=== PATIENT | female | born 1965 | race African-American/Black ===

== ENCOUNTER → 2017-07-04 | Outpatient (CLI) | payer BC ==
[2016-01-24 08:56] VITALS: BP 134/79
--- NOTE | 2017-07-05 07:44 | RAD ---
Chest, 2 views, 07/04/2017: History: Cough Comparison is made to a study from 06/10/2014. The heart size and pulmonary vascularity are normal. No pulmonary infiltrates are seen. There is no evidence of pleural fluid. IMPRESSION: No acute cardiopulmonary abnormality is detected.
== END | disposition home or self-care (01) ==
LOC: RAD 16:40
PROVIDERS: ATTEND Internal Medicine
DX: R05 Cough (principal); F17.200 Nicotine dependence, unspecified, uncomplicated
CPT/HCPCS: 71020

== ENCOUNTER 2018-01-06 19:00 | Emergency (ER) | payer BC | END 2018-01-06 19:47 | disposition left against medical advice (07) | LOC: ER 19:00 | DX: R55 Syncope and collapse (principal); Z91.010 Allergy to peanuts; Z91.018 Allergy to other foods | CPT/HCPCS: 99283 ==

== ENCOUNTER → 2018-01-27 | Outpatient (CLI) | payer BC | END | disposition home or self-care (01) | LOC: KCIC MAMMO 12:47 | DX: Z12.31 Encounter for screening mammogram for malignant neoplasm of breast (principal) | CPT/HCPCS: 77067 ==

== ENCOUNTER → 2018-02-15 | Outpatient (CLI) | payer BC ==
[~2018-02-15] MED LIST: CONTRAST GIVEN. MC
[2018-02-15] MEDS: IOHEXOL 300 MG/ML 100ML VIAL. IV (08:00)
[2018-02-15] MEDS: IOHEXOL 240 MG/ML 50ML VIAL. PO (08:00)
== END | disposition home or self-care (01) ==
LOC: CT 07:45
DX: R10.2 Pelvic and perineal pain (principal)
CPT/HCPCS: 74177; Q9966

== ENCOUNTER → 2019-01-16 | Outpatient (CLI) | payer BC ==
[2018-01-06 19:00] VITALS: BP 143/76
--- NOTE | 2019-01-16 14:42 | KCIC ---
BILATERAL DIAGNOSTIC MAMMOGRAPHY History: Patient notes left breast enlargement with development of a dark spot at the upper outer left areola with pruritus x2 months. Comparison: Bilateral mammogram January 27, 2018. Technique: Bilateral digital mammogram views were obtained. Findings: Breast Tissue Density B : There are scattered areas of fibroglandular density. There are no dominant masses, suspicious microcalcifications or architectural distortion. IMPRESSION: 1. No mammographic evidence of malignancy. Recommend routine follow-up. 2. For patient's complaint of a dark spot at the areola, recommend correlation with physical exam. BI-RADS category 1: Negative. The images were reviewed with computer-aided detection. Patient information is entered into the reminder system with a target due date for the next screening mammogram. Mammography is the most sensitive method for finding small breast cancers, but it does not detect them all and is not a substitute for careful clinical examination. A negative mammogram does not negate a clinically suspicious finding and should not result in delay in biopsying a clinically suspicious abnormality. "Our facility is accredited by the [employer] Mammography [employer]." Electronically signed by: Saúl Lorenzo MD (01/16/2019 2:39 PM) [id number]
== END | disposition home or self-care (01) ==
LOC: KCIC MAMMO 13:34
PROVIDERS: ATTEND Internal Medicine
DX: N62 Hypertrophy of breast (principal); L29.9 Pruritus, unspecified; R23.9 Unspecified skin changes
CPT/HCPCS: 77066

== ENCOUNTER → 2021-07-10 | Outpatient (CLI) | payer BC ==
[2018-01-06 19:00] VITALS: BP 143/76
--- NOTE | 2021-07-10 15:49 | KCIC ---
Bilateral digital screening mammograms: Reason for examination: Routine screening. Comparison is made to previous studies dated 01/16/2019 and 01/27/2018. Interpretation was made with the benefit of CAD. The skin and nipples show no abnormalities. No abnormal axillary lymph nodes are seen. The breast par enchyma shows scattered fibroglandular density. (Breast density: Category B.) There continues to be a small nodular parenchymal asymmetry in the lower outer quadrant of the left breast which is stable. There are no masses, suspicious calcifications or architectural distortions. Impression: No evidence of malignancy. Recommend routine screening. BI-RADS Category 2: Benign. "Our facility is accredited by the [employer] Mammography [employer]." This patient's information has been entered into a reminder system for the patient to be notified wit h the results of her examination and a target date for the next mammogram. Electronically signed by: Marleny Barillas MD (07/10/2021 3:46 PM) [id number]
== END ==
LOC: KCIC MAMMO 14:53
PROVIDERS: ATTEND Internal Medicine
DX: Z12.31 Encounter for screening mammogram for malignant neoplasm of breast (principal)
CPT/HCPCS: 77067